=== PATIENT | female | born 1950 | race Asian ===

== ENCOUNTER → 2024-06-07 13:57 | Outpatient (REF) | payer OTHER, SELFPAY | LOC: HWEVLT 13:57 | PROVIDERS: ATTENDING PHYSICIAN Radiology Diagnostic Radiology | DX: I83.892 Varicose veins of left lower extremity with other complications (principal) | CPT/HCPCS: 93971 ==

== ENCOUNTER 2024-10-17 11:20 | Emergency (ER) | payer OTHER, SELFPAY ==
[2024-10-17] VITALS (9 sets, daily range): BP systolic 92–136; BP diastolic 40–74; PULSE 64–66; BMI 37.3
[2024-10-17 11:59] LABS: % Basophils 0.5 % (0-2); % Immature Granulocytes 0.2 % (0-0.5); % Lymphocytes 19.5 % (20.5-51.1); % Monocytes 10.8 % (1.7-9.3); Absolute Lymphocytes 1.2 10^3/uL (1.2-3.4); Absolute Monocytes 0.7 10^3/uL (0.1-0.6); Absolute Neutrophils 4.2 10^3/uL (1.4-6.5); Hematocrit 31.9 % (37.0-47.0); Hemoglobin 10.4 g/dL (12.0-16.0); Mean Corp Hgb Conc. 32.6 g/dL (33.0-37.0); Mean Corpuscular Hgb 28.7 pg (27.0-31.0); Mean Corpuscular Volume 88.1 fL (81.0-99.0); Mean Platelet Volume 9.8 fL (7.4-10.4); Nucleated Red Blood Cells % 0 %; Platelet Count 192 10^3/uL (130-400); Red Blood Cell Count 3.62 10^6/uL (4.20-5.40); Red Cell Dist. Width 12.8 % (11.5-14.5); White Blood Cell Count 6.1 10^3/uL (4.8-10.8)
[2024-10-17 12:23] LABS: Blood Urea Nitrogen 28 mg/dl (7-17); Calcium 8.6 mg/dl (8.4-10.2); Carbon Dioxide 24 mmol/L (22-30); Chloride 106 mmol/L (98-107); Estimated Creatinine Clearance 32 ml/min; Glucose 135 mg/dl (70-99); Lipase 138 U/L (23-300); Sodium 135 mmol/L (135-145); eGFR 33.84
[2024-10-17 12:24] LABS: COVID-19 Antigen Positive (Negative)
--- NOTE | 2024-10-17 13:51 | ED.GENMED ---
History of Present Illness
General
Chief Complaint: Fainting/Passed Out
Source: patient
Exam Limitations: none
Time Seen by Provider: 10/17/24 12:04
Nursing documentation reviewed up to this point in time: agreed with
History of Present Illness
History of Present Illness:
74 yo female with h/o HTN presents for fever, chills past 2 days.
9 a.m. ate cookies and tea, took Tylenol and went out to get gas. As she was pumping the gas, became lightheaded, vision started to darken and she faltered to her knees. Bystander helped her up and she faltered again. No significant fall. Denies any
injury from fall. She states she never lost consciousness. When she faltered a 3rd time they sat her in the car and called EMS. She felt nauseous, had a small amount diarrheal stool incontinence and vomited x 3. EMS arrived started IV, BP was Now
feels slightly nauseous and lightheaded. Denies headache.
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
Past History
Past History
ED Past Medical History: HTN and Other (Vertigo)
ED Past Surgical History: Orthopedic (Ankle surgery)
Social History
Tobacco: Non-smoker
Alcohol: None
Drug: None
Living: with family
Family History
Family History: Other (reviewed and noncontributory)
Review of Systems
Review of Systems
Allergies reviewed?: Yes
All Other Systems: ROS reviewed and negative except as documented in HPI and ROS
Constitutional: Reports fever, fatigue and chills
EENT: Denies sore throat
Respiratory: Denies cough or trouble breathing
Cardiac: Reports other (near syncope x 3); Denies chest pain
ABD/GI: Reports nausea and other (incontinent small amount stool); Denies abdominal pain, diarrhea, bloody stools or black stools
: Denies dysuria, frequency, incontinence, difficulty voiding or urgency
Musculoskeletal: Reports no symptoms
Skin: Reports no symptoms
Neurological: Reports no symptoms
Phy Exam
Physical Exam
Physical Exam:
GENERAL: No acute distress. A&Ox3.
CONSTITUTIONAL: Afebrile.
EYES: clear, conjunctivae normal
ENMT: moist mucus membranes, Pharynx nl
RESPIRATORY: Regular respirations, nonlabored, lungs clear.
CARDIOVASCULAR: Regular rate and rhythm, no murmurs, no rubs.
GI: Soft, nontender, normal BS
Rectal: stool brown heme neg
MUSCULOSKELETAL: Moves with ease. Well perfused.
SKIN: Warm, dry, normal
PSYCH: Normal mood and affect. Well kept, interactive and appropriate
NEUROLOGIC: Awake, alert and oriented. No focal neurological deficits
Course
Orders/Labs/Results
Orders:
Orders
10/17/24 11:43
Electrocardiogram (*1) Urgent
Reason for Study: Vertigo / Dizzy
EKG- Treatment ONCE
10/17/24 11:46
Basic Metabolic Panel Urgent
Complete Blood Count/With Diff Urgent
Lipase Urgent
10/17/24 11:55
COVID-19 Antigen Urgent
Source: Nasal Swab
Influenza A+B Rapid Molecular Urgent
RADHA Source: Nasal Swab
Specimen Description:
10/17/24 14:04
0.9% Sodium Chloride 1000 ml [Nss] 1,000 ml IV BOLUS
10/17/24 14:07
Ondansetron Injectable [Zofran] 4 mg IV NOW STA
10/17/24 15:55
Orthostatic VS- Treatment ONCE
Abnormal Lab Results
10/17/24 10/17/24
11:46 11:55
RBC 3.62 L 10^6/uL
(4.20-5.40)
Hgb 10.4 L g/dL
(12.0-16.0)
Hct 31.9 L %
(37.0-47.0)
MCHC 32.6 L g/dL
(33.0-37.0)
Absolute Monos (auto) 0.7 H 10^3/uL
(0.1-0.6)
Lymphocytes % 19.5 L %
(20.5-51.1)
Monocytes % 10.8 H %
(1.7-9.3)
BUN 28 H mg/dl
(7-17)
Creatinine 1.6 H mg/dL
(0.6-1.0)
Glucose 135 H mg/dl
(70-99)
SARS-CoV-2 Antigen Positive A
(Negative)
10/17/24 11:46
10/17/24 11:46
Vital Signs
Initial and Last Documented VS:
Initial Vital Signs
Temp Pulse Resp BP Pulse Ox
97.5 F 60 18 107/69 96
10/17/24 11:22 10/17/24 11:22 10/17/24 11:22 10/17/24 11:22 10/17/24 11:22
Last Documented Vital Signs
Temp Pulse Resp BP Pulse Ox
97.5 F 56 20 119/53 98
10/17/24 11:22 10/17/24 14:15 10/17/24 14:15 10/17/24 15:00 10/17/24 15:30
MDM/Problems Addressed
Differential Diagnosis Includes:
Dehydration, vasovagal, orthostatic hypotension, Covid
MDM/Problems Addressed:
74 yo female with h/o HTN presents for fever, chills past 2 days.
9 a.m. ate cookies and tea, took Tylenol and went out to get gas. As she was pumping the gas, became lightheaded, vision started to darken and she faltered to her knees. Bystander helped her up and she faltered again. No significant fall. Denies any
injury from fall. She states she never lost consciousness. When she faltered a 3rd time they sat her in the car and called EMS. She felt nauseous, had a small amount diarrheal stool incontinence and vomited x 3. EMS arrived started IV, BP was Now
feels slightly nauseous and lightheaded. Denies headache.
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
Afebrile, NAD, pleasant
BP soft
1:50 p.m.
After a liter of IVF BP 94/56 HR 55 Second liter NSS ordered
CBC: Hbg 10.4 Stool brown heme neg
CMP: BUN/Creat 28/1.6 IVFs infusing for dehydration
Covid Positive
Flu neg
4:00 p.m.
After 2.5 L NSS pt BP 119/53, feeling better, still with head stuffiness.
Orthostatics neg
Stable for discharge
*Critical Care Note
Total Time (30-74mins, 75-104mins- exclusive of procedures): Not Applicable
ED Attending Note
-
Portions of this chart may have been created with voice recognition software.� Occasional wrong word or��sound alike� substitutions may have occurred due to the inherent limitations of voice recognition software.
Discharge Plan
Departure
Patient Disposition: Home (Routine Discharge)
Date of Disposition: 10/17/24
Time of Disposition: 15:55
Patient with high blood pressure during this ER visit?: No
Condition: Fair
Covid-19: Confirmed COVID-19
Discharge Problem:
COVID-19
Instructions: COVID-19 - ED discharge instructions, Coronavirus Home Quarantine
Prescriptions:
No Action
aspirin 81 MG tablet,delayed release (DR/EC)
81 mg PO DAILY
triamterene-hydrochlorothiazid 1 EACH tablet
1 ea PO DAILY
nebivolol 10 MG tablet
20 mg PO QPM
omega 0-dlh-zkd-fish oil [Fish Oil] 1 EACH capsule
1 ea PO DAILY
amlodipine 5 MG tablet
5 mg PO DAILY Qty: 30 0RF
levofloxacin 500 MG tablet
500 mg PO DAILY Qty: 3 0RF
Referrals:
Indu Apple MD [Family Provider] - As needed
Stand Alone Forms: Return to Work
Activity Restrictions/Additional Instructions:
As we discussed, you may hold your blood pressure medications tonight if your pressure is less than 120/systolic
Drink plenty of fluids.
No work for 5 days or until your symptoms are gone.
Interventions
Interventions:
*Risk Screen - Suicide Last Done: 10/17/24 11:22
*General Assessment Last Done: 10/17/24 11:22
*ED- Fall Risk Assessment Last Done: 10/17/24 11:22
*ED COVID-19 Vaccine History Last Done: 10/17/24 12:06
ED- Cardiac Assessment Last Done: 10/17/24 11:49
ED- Neurological Assessment Last Done: 10/17/24 11:49
Discharge Date and Time
Print Language: THAI
[2024-10-17] MEDS: NSS 1000 IV (14:21)
== END 2024-10-17 16:34 | disposition home or self-care (01) ==
LOC: EMR 11:20
PROVIDERS: Emergency Medicine; EMERGENCY PHYSICIAN Student in an Organized Health Care Education/Training Program; FAMILY PHYSICIAN Internal Medicine
DX: R55 Syncope and collapse (principal); U07.1 COVID-19; R11.2 Nausea with vomiting, unspecified; R19.7 Diarrhea, unspecified; Z11.52 Encounter for screening for COVID-19; I10 Essential (primary) hypertension; Z88.0 Allergy status to penicillin; Z88.2 Allergy status to sulfonamides
CPT/HCPCS: 99283; 80048; 83690; 85025; 87502; 87811; 93005